=== PATIENT | male | born 1965 | race Caucasian/White ===

== ENCOUNTER → 2017-05-11 | Outpatient (CLI) | payer OTHER ==
[~2017-05-11] MED LIST: FENO145T13 PO; GABA300C10 PO; INSU100V8 SQ; LISI-170 PO; METF500T4 PO
[2017-05-11 15:41] LABS: ASPARTATE AMINO TRANSFERASE 16 U/L (15-37); BLOOD UREA NITROGEN 15 mg/dL (7-18)
== END | disposition home or self-care (01) ==
LOC: SDC 14:39
PROVIDERS: ATTEND Orthopaedic Surgery
DX: Z01.818 Encounter for other preprocedural examination (principal); S83.241A Other tear of medial meniscus, current injury, right knee, initial encounter; M25.561 Pain in right knee; X58.XXXA Exposure to other specified factors, initial encounter; Y93.89 Activity, other specified; Y92.89 Other specified places as the place of occurrence of the external cause; Y99.8 Other external cause status
CPT/HCPCS: 36415; 80053; 93005

== ENCOUNTER 2017-05-16 08:39 | Day surgery (SDC) | payer OTHER ==
[~2017-05-16] VITALS: Ht 170.2 cm; Wt 96.5 kg
[~2017-05-16 08:39] MED LIST changes: +BUPIVACAINE/PF 0.5% ONE; +EPINEPHRINE 1 MG/ML, 1ML ONE; +LIDOCAINE/PF 1.5%-EPI 1:200K, 30ML ONE
[2017-05-16] MEDS ORDERED: LACTATED RINGERS 1,000 ML IV SCH (08:59)
[2017-05-16 09:26] VITALS: BP 122/79
[2017-05-16] MEDS ORDERED: FENTANYL PF 100 MCG/2ML ONE ×2 (09:40→10:51)
[2017-05-16] MEDS ORDERED: MIDAZOLAM 1 MG/ML, 2ML ONE ×2 (09:40→11:25)
[2017-05-16] MEDS ORDERED: BUPIVACAINE/PF-EPI 0.5% 1:200K INFIL ONE (09:56)
[2017-05-16] MEDS ORDERED: ONDANSETRON 2MG/ML, 2ML ONE (10:04)
[2017-05-16] MEDS ORDERED: KETOROLAC 30 MG/1 ML ONE (10:04)
[2017-05-16] MEDS ORDERED: CEFAZOLIN 1,000 MG ONE (10:04)
[2017-05-16] MEDS ORDERED: PROPOFOL 10 MG/ML, 20ML ONE (10:04)
[2017-05-16] MEDS ORDERED: DEXAMETHASONE 4 MG/ML, 1ML ONE (10:04)
[2017-05-16] MEDS ORDERED: MEPERIDINE/PF 25MG/0.5ML IVPush PRN (10:30)
[2017-05-16] MEDS ORDERED: ACETAMINOPHEN 325 MG TABLET PO PRN (10:30)
[2017-05-16] MEDS ORDERED: ALBUTEROL/IPRATROPIUM 2.5MG/0.5MG, 3 ML NPPB PRN (10:30)
[2017-05-16] MEDS ORDERED: PROMETHAZINE 25 MG/ML, 1ML IV PRN (10:30)
[2017-05-16] MEDS ORDERED: LABETALOL 5MG/ML, 20ML IV PRN (10:30)
[2017-05-16] MEDS ORDERED: ONDANSETRON 2MG/ML, 2ML IVPush PRN (10:30)
[2017-05-16] MEDS ORDERED: OXYcodone 5 MG/5 ML ORAL.SOL UDC PO PRN (10:30)
[2017-05-16] MEDS ORDERED: MIDAZOLAM 1 MG/ML, 2ML IV PRN (10:30)
[2017-05-16] MEDS ORDERED: hydrALAzine 20 MG/ML, 1ML IV PRN (10:30)
[2017-05-16] MEDS ORDERED: ACETAMINOPHEN 650 MG/20.3 ML UDC ONE (10:51)
[2017-05-16] MEDS ORDERED: OXYcodone 5 MG/5 ML ORAL.SOL UDC ONE (10:51)
[2017-05-16] MEDS: FENTANYL PF 100 MCG/2ML IV PRN ×2 (10:54→10:59)
[2017-05-16] MEDS ORDERED: HYDROmorphone 2 MG/ML, 1ML ONE ×2 (11:07→11:46)
[2017-05-16] MEDS: HYDROmorphone 1 MG/ML, 1ML IV PRN ×6 (11:09→12:03)
[2017-05-16] MEDS ORDERED: ROPIvacaine/PF 0.5%, 20 ML ONE (12:26)
[2017-05-16] MEDS ORDERED: ROPIvacaine/PF 0.2%, 20 ML ONE (12:26)
== END 2017-05-16 14:10 ==
LOC: OUT 08:39
PROVIDERS: ATTEND Orthopaedic Surgery
DX: S83.241A Other tear of medial meniscus, current injury, right knee, initial encounter (principal); M65.861 Other synovitis and tenosynovitis, right lower leg; M23.41 Loose body in knee, right knee; E11.9 Type 2 diabetes mellitus without complications; E78.5 Hyperlipidemia, unspecified; I10 Essential (primary) hypertension; X58.XXXA Exposure to other specified factors, initial encounter; Y93.89 Activity, other specified; Y92.89 Other specified places as the place of occurrence of the external cause; Y99.8 Other external cause status
CPT/HCPCS: 29876; 29881; 82962; J0171; J0690; J1100; J1170; J1885; J2250; J2405; J2704; J2795; J3010; J3490; J7120